=== PATIENT | female | born 1925 | race Caucasian/White ===

== ENCOUNTER 2016-08-23 10:57 | Emergency (ER) | payer MEDICARE ==
[2016-08-23 11:13] VITALS: BP 181/87
[2016-08-23] MEDS ORDERED: Acetaminophen TAB* 325 MG ONE (13:10)
[2016-08-23] MEDS ORDERED: Acetaminophen TAB* 325 MG PO ONE (13:12)
--- NOTE | 2016-11-12 09:19 | ED ---
Skin Complaint - HPI Summary HPI Summary: Pt here w/ Rt tripp laceration earlier today - mechanical fall - no other injuries reported - no head injury. Bleeding controlled with gauze wrap. Pt does not take anti-coagulants. Denies numbness, tingling, weakness in this extremity since fall. - History of Current Complaint Hx Obtained From: Patient Pain Intensity: 3 Pain Scale Used: 0-10 Numeric <Jyotsna Montes - Last Filed: 11/12/16 09:14> <Luis Carlos Grewal - Last Filed: 11/12/16 10:22> - History of Current Complaint Chief Complaint: EDLacSutureRecheck Time Seen by Provider: 08/23/16 12:25 Stated Complaint: RT LEG LAC - Allergy/Home Medications Allergies/Adverse Reactions: Allergies Allergy/AdvReac Type Severity Reaction Status Date / Time Erythromycin Allergy Severe STOMACH Verified 07/23/15 03:37 PAINS Ibuprofen [From Motrin] Allergy Severe Rash Verified 07/23/15 03:37 PMH/Surg Hx/FS Hx/Imm Hx Previously Healthy: Yes Endocrine/Hematology History: Denies: Hx Anticoagulant Therapy, Hx Blood Disorders, Hx Diabetes, Hx Thyroid Disease Cardiovascular History: Denies: Hx Congestive Heart Failure, Hx Hypertension, Hx Pacemaker/ICD Respiratory History: Reports: Hx Asthma Denies: Hx Chronic Obstructive Pulmonary Disease (COPD) GI History: Denies: Hx Ulcer History: Denies: Hx Renal Disease Sensory History: Reports: Hx Hearing Aid Psychiatric History: Denies: Hx Panic Disorder - Cancer History Hx Chemotherapy: No Hx Radiation Therapy: No - Surgical History Surgery Procedure, Year, and Place: LEFT KNEE SURGERY, TONSILLECTOMY, PARTIAL HYSTERECTOMY, BLADDER SLING, NOW HAS A PESSARY -PT WILL TAKE OUT BEFORE MRI, CHOLECYSTECTOMY; FISTULA; CATARACT - JOE, RETINAL SURGERY FIXED BY LASER Infectious Disease History: No Infectious Disease History: Denies: Hx Clostridium Difficile, Hx Hepatitis, Hx Human Immunodeficiency Virus (HIV), Hx of Known/Suspected MRSA, Hx Shingles, Hx Tuberculosis, Hx Known/ Suspected VRE, Hx Known/Suspected VRSA, History Other Infectious Disease, Traveled Outside the [place] in Last 30 Days - Social History Occupation: Retired Alcohol Use: None Substance Use Type: Reports: None Smoking Status (MU): Never Smoked Tobacco <Jyotsna Montes - Last Filed: 11/12/16 09:14> Review of Systems Constitutional: Negative Negative: Chest Pain Negative: Shortness Of Breath Negative: Vomiting, Nausea Positive: no symptoms reported Negative: Arthralgia, Myalgia Skin: Other - see HPI Neurological: Negative Psychological: Normal All Other Systems Reviewed And Are Negative: Yes <Jyotsna Montes - Last Filed: 11/12/16 09:14> Physical Exam Triage Information Reviewed: Yes Vital Signs On Initial Exam: Initial Vitals Temp Pulse Resp BP Pulse Ox 97.4 F 77 20 181/87 99 08/23/16 11:09 08/23/16 11:09 08/23/16 11:09 08/23/16 11:09 08/23/16 11:09 Vital Signs Reviewed: Yes Appearance: Positive: Well-Appearing, No Pain Distress, Well-Nourished Skin: Positive: Warm - 7cm laceration/skin tear over Rt anterior tibial region - no vessels, nerves or bone exposed - no active bleeding Eyes: Positive: EOMI ENT: Positive: Hearing grossly normal - wearing hearing aids Respiratory/Lung Sounds: Positive: Breath Sounds Present Cardiovascular: Positive: Pulses are Symmetrical in both Upper and Lower Extremities Musculoskeletal: Positive: Strength/ROM Intact Neurological: Positive: Sensory/Motor Intact Psychiatric: Positive: Normal <Jyotsna Montes - Last Filed: 11/12/16 09:14> Vital Signs On Initial Exam: Initial Vitals Temp Pulse Resp BP Pulse Ox 97.4 F 77 20 181/87 99 08/23/16 11:09 08/23/16 11:09 08/23/16 11:09 08/23/16 11:09 08/23/16 11:09 <Luis Carlos Grewal - Last Filed: 11/12/16 10:22> Procedures - Laceration/Wound Repair 1 Location: lower extremity Description: Linear Length, Depth and Shape: 7cm x 3mm Betadine Prep?: No Irrigated w/ Saline (ccs): 50 - sterile saline Laceration/Wound Explored: clean Closure: Skin Adhesive Sterile Dressing Applied?: Yes - xeroform and sterile gauze dressing <Jyotsna Montes - Last Filed: 11/12/16 09:14> Diagnostics - Vital Signs Vital Signs Temp Pulse Resp BP Pulse Ox 08/23/16 11:35 97.4 F 77 20 181/87 99 08/23/16 11:09 97.4 F 77 20 181/87 99 <Jyotsna Montes - Last Filed: 11/12/16 09:14> - Vital Signs Vital Signs Temp Pulse Resp BP Pulse Ox 08/23/16 11:35 97.4 F 77 20 181/87 99 08/23/16 11:09 97.4 F 77 20 181 99 <Luis Carlos Grewal - Last Filed: 11/12/16 10:22> Course/Dx <Jyotsna Montes - Last Filed: 11/12/16 09:14> <Luis Carlos Grewal - Last Filed: 11/12/16 10:22> - Diagnoses Provider Diagnoses: LACERATION,STERISTRIPS Discharge <Jyotsna Montes - Last Filed: 11/12/16 09:14> <Luis Carlos Grewal - Last Filed: 11/12/16 10:22> - Discharge Plan Condition: Stable Disposition: HOME Patient Education Materials: Laceration (ED), Steristrips (ED) Referrals: Sg Xie MD [Medical Doctor] - Issa Kwok MD [Primary Care Provider] - Additional Instructions: You appear to have a laceration over your Right lower extremity. Unfortunately the skin is thin here and sutures are not appropriate. Steristrips and a xeroform dressing was placed. Keep leg elevated, ice and take acetaminophen as needed for pain. You may change outer dressing every day or 2 as needed until seen by wound clinic - do not remove steristrips. Follow-up with wound clinic this week. Call today to schedule an appointment. You may also call your PCP to see if you are up to date with your tetanus vaccine -if not up to date, you may return here for vaccine or go to PCP's office to receive this today or tomorrow.
== END 2016-08-23 13:25 | disposition home or self-care (01) ==
LOC: ED 10:57
DX: S81.811A Laceration without foreign body, right lower leg, initial encounter (principal); W19.XXXA Unspecified fall, initial encounter; Y93.9 Activity, unspecified; Y92.9 Unspecified place or not applicable; J45.909 Unspecified asthma, uncomplicated; Z88.6 Allergy status to analgesic agent; Z88.1 Allergy status to other antibiotic agents; Z90.711 Acquired absence of uterus with remaining cervical stump; Z90.49 Acquired absence of other specified parts of digestive tract; Z98.42 Cataract extraction status, left eye; Z98.41 Cataract extraction status, right eye
CPT/HCPCS: 99282; A9270-GY